=== PATIENT | male | born 1970 | race Caucasian/White ===

== ENCOUNTER 2017-08-25 18:05 | Outpatient (CLI) | payer OTHER ==
[2017-08-25] MEDS ORDERED: IOPAMIDOL-300 100 ML VIAL ONE (18:20)
[2017-08-25 18:33] LABS: CREATININE 0.9 mg/dL (0.6-1.2)
[2017-08-25] MEDS ORDERED: IOPAMIDOL-300 100 ML VIAL IVP ONE (18:49)
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
== END 2017-08-25 18:06 | disposition home or self-care (01) ==
LOC: DI 18:05
PROVIDERS: ATTEND Internal Medicine
DX: J02.9 Acute pharyngitis, unspecified (principal); J35.1 Hypertrophy of tonsils
CPT/HCPCS: 70491; 82565; Q9967

== ENCOUNTER 2018-03-25 17:31 | Outpatient (CLI) | payer OTHER ==
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
== END 2018-03-25 17:32 | disposition home or self-care (01) ==
LOC: DI 17:31
PROVIDERS: ATTEND Nurse Practitioner Family
DX: S99.912A Unspecified injury of left ankle, initial encounter (principal); S89.92XA Unspecified injury of left lower leg, initial encounter; S99.922A Unspecified injury of left foot, initial encounter

== ENCOUNTER 2020-05-30 16:50 | Outpatient (CLI) | payer OTHER | END 2020-05-30 16:51 | disposition home or self-care (01) | LOC: COV 16:50 | PROVIDERS: ATTEND Family Medicine | DX: Z20.828 Contact with and (suspected) exposure to other viral communicable diseases (principal) ==